=== PATIENT | female | born 1955 ===

== ENCOUNTER 2017-06-02 05:48 | Day surgery (SDC) | payer MEDICARE, MEDICAID ==
[2017-05-27 11:32] VITALS: BMI 26.6
[2017-06-02] MEDS ORDERED: Bupivacaine HCl 0.25% PF (10 ml) Inj ONE (07:27)
[2017-06-02] MEDS ORDERED: Lactated Ringer's 1,000 ML IV ONE ×3 (07:31→08:45)
[2017-06-02] MEDS ORDERED: Propofol 10 mg/ml Inj (20 ML) ONE (07:57)
[2017-06-02] MEDS ORDERED: Midazolam 2 MG/2 ML VIAL ONE (07:57)
[2017-06-02] MEDS: ceFAZolin IV 1 gm in Dextrose 1 GM/50 ML BAG IVPB ONE ×2 (08:00→08:08)
[2017-06-02] MEDS ORDERED: Neostigmine Methylsulfate 3mg/3ml Syringe IV ONE (08:42)
[2017-06-02] MEDS ORDERED: Oxycodone/Acetaminophen 5/325 mg Tab PO PRN (09:23)
--- NOTE | 2017-06-02 09:23 | PCM.SURG1 ---
Surgeon's Initial Post Op Note - Surgeon's Notes Surgeon: Dr. Hough Product Managent Intern: Dr. aMllory PGY-3, Dr. Leroy PGY-2 Type of Anesthesia: General Endo Pre-Operative Diagnosis: left inguinal hernia Operative Findings: see operative report Post-Operative Diagnosis: same Operation Performed: left inguinal hernia repair w/ mesh placement Specimen/Specimens Removed: none Estimated Blood Loss: EBL {In ML}: 20 Blood Products Given: N/A Drains Used: No Drains Post-Op Condition: Good Date of Surgery/Procedure: 06/02/17 Time of Surgery/Procedure: :
[2017-06-02] MEDS: HYDROmorphone 0.5 mg/0.5 ml ISec IVP PRN ×2 (09:29→09:51)
[2017-06-02] MEDS ORDERED: HYDROmorphone 0.5 mg/0.5 ml ISec ONE (09:29)
[2017-06-02 11:36] VITALS: RESP 18
[2017-06-02 12:11] VITALS: BP 111/71; PULSE 84; TEMP 98; O2SAT 100
--- NOTE | 2017-06-03 00:02 | OP ---
PROCEDURE DATE: 06/02/2017 PREOPERATIVE DIAGNOSIS: Left inguinal hernia. POSTOPERATIVE DIAGNOSIS: Left inguinal hernia. PROCEDURE CARRIED OUT: Repair of left inguinal hernia with mesh, Prolene Hernia System. SURGEON: Dr. Deepak Hough Jr., MD ESTIMATED BLOOD LOSS: Approximately 20 mL. INDICATIONS FOR THE PROCEDURE: The patient is a 61-year-old woman with pain in the left groin. Clinical exam confirmed the presence of the hernia as well as the CAT scan. OPERATIVE FINDINGS: The defect was very well defined. A Prolene Hernia System was placed into the defect after the sac had been dissected free from the surrounding tissues. The bottom part was unfurled. The mesh was then deployed on top of this and in between connecting piece was sutured to the surrounding fascia. DESCRIPTION OF PROCEDURE: The patient was given general anesthesia and intravenous antibiotics. The area was prepped and draped with Betadine. The skin drape applied on top of it. Incision was made after Marcaine was given and the tissue was dissected free. The findings were as mentioned. The mesh was implanted, secured in place with zac and 5-0 nylon sutures. Blood loss to the procedure was 20 mL. There were no operative complications or problems. Operation carried out was repair of left inguinal hernia with mesh. Deepak Hough Jr., MD cc: Peter Bennett MD
== END 2017-06-02 12:14 | disposition home or self-care (01) ==
LOC: C.SDS 05:48
PROVIDERS: ATTEND Surgery Vascular Surgery
DX: K40.90 Unilateral inguinal hernia, without obstruction or gangrene, not specified as recurrent (principal)

== ENCOUNTER 2018-09-30 10:05 | Emergency (ER) | payer MEDICARE, MEDICAID ==
[2018-09-30 10:05] VITALS: BMI 26.6
[2018-09-30] MEDS ORDERED: Naproxen 550 mg Tab PO STA (12:03)
[2018-09-30] MEDS ORDERED: Naproxen 550 mg Tab PO ONE (12:11)
[2018-09-30 12:27] VITALS: BP 120/75; PULSE 88; RESP 20; TEMP 97.1
--- NOTE | 2018-09-30 12:28 | C.PDOC ---
History Of Present Illness 63 year old female presents to the ED for evaluation of bilateral knee pain. Patient states she tripped and fell onto her knees one week ago. She was evaluated by her PMD yesterday evening, and was instructed to come to the ED for an x-ray. Patient states her pain is worse with ambulation, but she is able to bear weight. Patient states she is up-to-date with Tetanus shot and denies any other injuries at this time. Time Seen by Provider: 09/30/18 10:24 Chief Complaint (Nursing): Lower Extremity Problem/Injury History Per: Patient History/Exam Limitations: no limitations Current Symptoms Are (Timing): Still Present Additional History Per: Patient - Knee Description Of Injury: Fell Past Medical History Reviewed: Historical Data, Nursing Documentation, Vital Signs Vital Signs: Last Vital Signs Temp 98.5 F 09/30/18 10:16 Pulse 99 H 09/30/18 10:16 Resp 18 09/30/18 10:16 BP 143/84 09/30/18 10:16 Pulse Ox 100 09/30/18 10:16 - Medical History PMH: Anxiety, Hypercholesterolemia Denies: Fractures Surgical History: Appendectomy (AGE 11), Endoscopy Family History: States: Unknown Family Hx - Social History Hx Alcohol Use: No Hx Substance Use: No - Immunization History Hx Tetanus Toxoid Vaccination: No Hx Influenza Vaccination: No Hx Pneumococcal Vaccination: No Review Of Systems Musculoskeletal: Positive for: Other (bilateral knee pain ) Physical Exam - Physical Exam Appears: Non-toxic, No Acute Distress Skin: Normal Color, Warm, Dry, Other (small abrasion to left knee. no erythema ) Head: Atraumatic, Normacephalic Eye(s): bilateral: Normal Inspection Oral Mucosa: Moist Neck: Supple Extremity: Normal ROM, Tenderness (mild, to anterior aspect of bilateral knees ), No Calf Tenderness, Capillary Refill (less than 2 seconds ), No Deformity, No Swelling Pulses: Left Dorsalis Pedis: Normal, Right Dorsalis Pedis: Normal Neurological/Psych: Oriented x3, Normal Speech, Normal Cognition, Normal Sensation ED Course And Treatment O2 Sat by Pulse Oximetry: 100 (on RA) Pulse Ox Interpretation: Normal - Other Rad knee XR X-Ray: Viewed By Me, Read By Radiologist Interpretation: 09/30/2018. PROCEDURE: Bilateral Knee Radiographs. HISTORY: B/L KNEE PAIN AFTER FALL. COMPARISON: None. FINDINGS: BONES: Right Knee: Normal. No fracture. Left Knee: Normal. No fracture. JOINTS: Right Knee: Normal. No osteoarthritis. Left knee: Normal. No osteoarthritis. SOFT TISSUES: Right Knee: Normal. Left Knee: Normal. JOINT EFFUSION: Right Knee: None. Left Knee: None. OTHER FINDINGS: None. IMPRESSION: Unremarkable radiographs of the knees. No acute findings. Progress Note: Bilateral knee XR ordered and reviewed. XR results are unremarkable. Naproxen PO given. Saulo bandage applied by logistics technician and was checked by me. On reassessment, patient is resting comfortably, showing no signs of distress and reports an improvement in her symptoms. Patient will be discharged with Rx for Naproxen for pain and is advised to follow up with orthopedist within 1 week for further evaluation. Disposition Counseled Patient/Family Regarding: Studies Performed, Diagnosis, Need For Followup, Rx Given - Disposition Referrals: Petar Oconnor MD [Staff Provider] - Disposition: HOME/ ROUTINE Disposition Time: 12:00 Condition: STABLE Additional Instructions: FOLLOW UP WITH ORTHOPEDICS WITHIN 1 WEEK USE MEDICATIONS NEEDED FOR PAIN RETURN TO ER IF SYMPTOMS WORSEN Prescriptions: Naproxen 375 mg PO BID PRN #20 tablet PRN Reason: pain Instructions: Knee Sprain (DC) Forms: [facility] (Greenlandic) Print Language: BENINESE - POA Present On Arrival: Falls Or Trauma - Clinical Impression Clinical Impression: Knee sprain, bilateral - Scribe Statement The provider has reviewed the documentation as recorded by the Scribe (Susan Gregorio) Provider Attestation: All medical record entries made by the Scribe were at my direction and personally dictated by me. I have reviewed the chart and agree that the record accurately reflects my personal performance of the history, physical exam, medical decision making, and the department course for this patient. I have also personally directed, reviewed, and agree with the discharge instructions and disposition.
[2018-09-30 14:00] VITALS: O2SAT 100
--- NOTE | 2018-09-30 14:39 | RAD ---
Date of service: 09/30/2018 PROCEDURE: Bilateral Knee Radiographs. HISTORY: B/L KNEE PAIN AFTER FALL COMPARISON: None. FINDINGS: BONES: Right Knee: Normal. No fracture. Left Knee: Normal. No fracture. JOINTS: Right Knee: Normal. No osteoarthritis. Left knee: Normal. No osteoarthritis. SOFT TISSUES: Right Knee: Normal. Left Knee: Normal. JOINT EFFUSION: Right Knee: None. Left Knee: None. OTHER FINDINGS: None. IMPRESSION: Unremarkable radiographs of the knees. No acute findings.
== END 2018-09-30 12:33 | disposition home or self-care (01) ==
LOC: C.ER 10:05
DX: S83.92XA Sprain of unspecified site of left knee, initial encounter (principal); S83.91XA Sprain of unspecified site of right knee, initial encounter; W01.0XXA Fall on same level from slipping, tripping and stumbling without subsequent striking against object, initial encounter; Y92.9 Unspecified place or not applicable